=== PATIENT | male | born 1975 ===

== ENCOUNTER → 2017-06-28 | Day surgery (SDC) | payer OTHER ==
[2017-06-24 15:50] LABS: BASOPHIL % 0.5 % (0.0-0.2); EOSINOPHIL % 0.4 % (0.0-5.0); HEMOGLOBIN 17.1 g/dL (13.9-16.3); LYMPHOCYTES # 2.1 10^3/uL (1.0-4.8); LYMPHOCYTES % 25.1 % (24.0-44.0); MEAN CELL HGB 28.3 pg (26-34); MEAN CELL HGB CONCENTRATION 34.1 g/dL (33-37); MEAN PLATELET VOLUME 9.6 fL (7.8-11.0); MONOCYTES # 0.4 10^3/uL (0.3-0.8); NEUTROPHIL # 5.8 10^3/uL (1.8-7.7); NEUTROPHILS % 68.8 % (41.0-85.0); RED CELL DISTRIBUTION WIDTH 14.1 % (11.5-14.5); WHITE BLOOD CELL 8.4 10^3/uL (4.5-11.0)
[2017-06-24 16:02] LABS: CARBON DIOXIDE 24.4 mmol/L (20.0-32)
--- NOTE | 2017-06-24 16:26 | PCM.EKG ---
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
[2017-06-28] VITALS (10 sets, daily range): BP systolic 115–154; BP diastolic 66–91
[~2017-06-28] VITALS: Ht 188 cm; Wt 126.1 kg
[~2017-06-28] MED LIST: ACET-687 PO; AMLO10TA2 PO; BENA20TA2 PO; CIPR500T86 PO; DECADRON ONE; DIAZ10TA PO; DILAUDID IV PRN; DILAUDID ONE; DIPRIVAN IV ONE; FLUO20CA19 PO; LACTATED RINGERS 1,000 ML IV SCH; LEVAQUIN 100 ML IV ONE; NAPR500T4 PO; NORCO 7.5MG PO PRN; OMEP20TA9 PO; QUELICIN ONE; SODIUM CHLORIDE IR ONE; SUBLIMAZE IV PRN; SUBLIMAZE ONE; TORADOL ONE; TRAM50TA PO; VERSED ONE; XYLOCAINE ONE; ZOFRAN ONE
[2017-06-28] MEDS: LACTATED RINGERS 1,000 ML IV SCH ×2 (07:38→10:50)
--- NOTE | 2017-06-28 13:19 | OPH ---
DATE OF SURGERY: 06/28/2017 PREOPERATIVE DIAGNOSES: Cystic nodule of the head of the right epididymis with chronic epididymitis and also cystic nodule in the right groin. FINAL DIAGNOSES: Cystic nodule of the head of the right epididymis with chronic epididymitis and also cystic nodule in the right groin. PROCEDURES: Right scrotal exploration with excision of the nodule of the epididymis with right epididymectomy and excision of cyst nodule in the right groin. DESCRIPTION OF PROCEDURE: The patient was brought to the operating room, was put in supine position on the operating room table. After the patient was given a satisfactory and adequate general anesthesia, the genitalia was then prepped and draped aseptically in the usual manner. First, a transverse incision was done in the right hemiscrotal region, incision was deepened up to the subcutaneous tissue. The tunica was opened and the right testis was led out of the right hemiscrotal sac. The testis was inspected, it was normal, but in the epididymis it was swollen with the nodule and with chronic inflammation of the right epididymis. By blunt and sharp dissection, this area of the epididymis was then excised. All bleeders were promptly coagulated and some were ligated with 2-0 chromic catgut. After this was done, the testis was put back in its normal anatomical position in the right hemiscrotal sac. A [place] drain was placed in this right scrotal region and the scrotal incision was then approximated thus in 2 layers by the use of 2-0 chromic catgut in an interrupted fashion. After this was done, the area of the nodule in the right groin area was examined and incision was done around the nodule and by blunt and sharp dissection, the cystic nodule was excised. Bleeders were promptly coagulated. The subcutaneous tissue was approximated with the use of 2-0 plain and the skin was approximated also with 2-0 chromic catgut. scrotal dressing was applied. The patient was then awakened, was transferred to the recovery room in stable condition. Jeff Perez MD DR: BROOKE/blaze JOB# [id number]
== END | DRG 730 ==
LOC: SDC 01:36
PROVIDERS: ATTEND Urology
DX: N50.3 Cyst of epididymis (principal); N45.1 Epididymitis; E66.9 Obesity, unspecified; I10 Essential (primary) hypertension; M19.90 Unspecified osteoarthritis, unspecified site; Z68.35 Body mass index [BMI] 35.0-35.9, adult
CPT/HCPCS: 36415; 49203; 54860; 80051; 82565; 84520; 85025; 85610; 93005; J0330; J1100; J1170; J1885; J2250; J2405; J3010 ×2; J3490 ×2; J7030; 88304